=== PATIENT | female | born 2000 | race American Indian/Alaskan Native ===

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

== ENCOUNTER 2021-07-18 18:45 | Emergency (ER) | payer BC ==
[2021-07-18 20:35] VITALS: BP 111/72
== END 2021-07-19 02:50 | disposition left against medical advice (07) ==
LOC: ED 18:45
DX: N73.9 Female pelvic inflammatory disease, unspecified (principal); Z53.21 Procedure and treatment not carried out due to patient leaving prior to being seen by health care provider

== ENCOUNTER 2021-07-19 10:02 | Emergency (ER) | payer BC ==
[2021-07-19] MEDS ORDERED: SODIUM CHLORIDE 0.9% 1000 ML 1,000 ML IV ONE (15:45)
[2021-07-19] MEDS ORDERED: ONDANSETRON 4 MG/2 ML INJ IV ONE (15:45)
[2021-07-19] MEDS ORDERED: KETOROLAC 30 MG/1 ML INJ IV ONE (15:45)
--- NOTE | 2021-07-19 15:51 | Emergency Department Report ---
ED Abdominal Pain HPI - General Chief Complaint: Abdominal Pain Stated Complaint: PID Time Seen by Provider: 07/19/21 15:26 Source: patient Mode of arrival: Ambulatory Limitations: No Limitations - History of Present Illness Initial Comments: 21 yo F who present with abdominal pain that started on Friday 4 days ago and progressively getting worse. Pt was seen at the Urgent Care yesterday and diagnosed with UTI and PID who started her on Flagyl and Doxycyclin and acyclovir and was given Rocephin 1g x 1. Pt also reports fever of 103 degrees. She also noted soreness and blister surrounding her vaginal vault. Pt denies any nausea or vomiting. She says she has been able to tolerate all her medications. Pt reports starting the menstrual period today. No other modifying or associated factors reported. - Related Data Previous Rx's Medication Instructions Recorded Last Taken Type Naproxen 500 mg PO BID PRN #20 tablet 12/04/20 Unknown Rx methocarbamoL [Methocarbamol] 750 - 1,500 mg PO TID PRN #20 12/04/20 Unknown Rx tablet Ketorolac [Toradol] 10 mg PO Q6H PRN 5 Days #20 tab NS 07/19/21 Unknown Rx Allergies Allergy/AdvReac Type Severity Reaction Status Date / Time No Known Allergies Allergy Verified 07/18/21 20:36 ED Review of Systems ROS: Stated complaint: PID Other details as noted in HPI Comment: All other systems reviewed and negative Gastrointestinal: abdominal pain. denies: nausea, vomiting Genitourinary: other (blister per vaginal ) ED Past Medical Hx - Social History Smoking Status: Never Smoker Substance Use Type: None - Medications Home Medications: Home Medications Medication Instructions Recorded Confirmed Last Taken Type Naproxen 500 mg PO BID PRN #20 tablet 12/04/20 Unknown Rx methocarbamoL [Methocarbamol] 750 - 1,500 mg PO TID PRN #20 12/04/20 Unknown Rx tablet Ketorolac [Toradol] 10 mg PO Q6H PRN 5 Days #20 tab NS 07/19/21 Unknown Rx ED Physical Exam - General Limitations: No Limitations General appearance: alert, in distress (due to pain ) - Eye Eye exam: Present: normal appearance. Absent: conjunctival injection - ENT ENT exam: Present: normal exam, normal orophraynx, mucous membranes moist - Neck Neck exam: Present: normal inspection, full ROM. Absent: tenderness - Respiratory Respiratory exam: Present: normal lung sounds bilaterally. Absent: respiratory distress, accessory muscle use - Cardiovascular Cardiovascular Exam: Present: regular rate, normal rhythm, normal heart sounds - GI/Abdominal GI/Abdominal exam: Present: soft, tenderness (suprapubic tenderness to palpation ) - External exam: Present: erythema, swelling, lesions (blister in different stages ). Absent: lacerations Bi-manual exam: Present: normal bi-manual exam. Absent: cervical motion tendernes, adnexal tenderness - Extremities Exam Extremities exam: Present: normal inspection, full ROM - Back Exam Back exam: Absent: tenderness - Neurological Exam Neurological exam: Present: alert, oriented X3 - Psychiatric Psychiatric exam: Present: normal affect, normal mood - Skin Skin exam: Present: warm, normal color ED Course Vital Signs 07/19/21 07/19/21 07/19/21 10:29 16:03 16:05 Temperature 102.7 F H Pulse Rate 123 H Respiratory 18 Rate Blood Pressure 115/72 Blood Pressure 116/74 [Right] O2 Sat by Pulse 99 96 100 Oximetry 07/19/21 07/19/21 07/19/21 16:11 16:15 16:20 Temperature Pulse Rate Respiratory Rate Blood Pressure 115/72 115/72 94/72 Blood Pressure [Right] O2 Sat by Pulse 100 100 98 Oximetry 07/19/21 07/19/21 07/19/21 16:25 16:31 16:35 Temperature Pulse Rate Respiratory Rate Blood Pressure 94/72 94/72 94/72 Blood Pressure [Right] O2 Sat by Pulse 100 100 100 Oximetry 07/19/21 07/19/21 07/19/21 16:41 16:45 16:50 Temperature Pulse Rate Respiratory Rate Blood Pressure 94/72 94/72 94/72 Blood Pressure [Right] O2 Sat by Pulse 98 98 96 Oximetry 07/19/21 07/19/21 07/19/21 16:55 17:01 17:05 Temperature Pulse Rate Respiratory Rate Blood Pressure 94/72 94/72 94/72 Blood Pressure [Right] O2 Sat by Pulse 98 99 98 Oximetry 07/19/21 07/19/21 07/19/21 17:11 17:15 17:21 Temperature Pulse Rate Respiratory Rate Blood Pressure 94/72 94/72 94/72 Blood Pressure [Right] O2 Sat by Pulse 97 99 98 Oximetry 07/19/21 07/19/21 07/19/21 17:25 17:31 17:35 Temperature Pulse Rate Respiratory Rate Blood Pressure 94/72 94/72 94/72 Blood Pressure [Right] O2 Sat by Pulse 99 99 100 Oximetry 07/19/21 07/19/21 07/19/21 17:41 17:45 17:51 Temperature Pulse Rate Respiratory Rate Blood Pressure 94/72 94/72 94/72 Blood Pressure [Right] O2 Sat by Pulse 99 98 99 Oximetry 07/19/21 07/19/21 07/19/21 17:55 18:01 18:05 Temperature Pulse Rate Respiratory Rate Blood Pressure 94/72 94/72 94/72 Blood Pressure [Right] O2 Sat by Pulse 97 99 99 Oximetry 07/19/21 07/19/21 07/19/21 18:11 18:15 18:21 Temperature Pulse Rate Respiratory Rate Blood Pressure 94/72 94/72 94/72 Blood Pressure [Right] O2 Sat by Pulse 99 99 98 Oximetry 07/19/21 07/19/21 07/19/21 18:25 18:31 18:35 Temperature Pulse Rate Respiratory Rate Blood Pressure 94/72 94/72 94/72 Blood Pressure [Right] O2 Sat by Pulse 98 98 97 Oximetry 07/19/21 07/19/21 07/19/21 18:41 18:45 18:51 Temperature Pulse Rate Respiratory Rate Blood Pressure 94/72 94/72 94/72 Blood Pressure [Right] O2 Sat by Pulse 97 97 97 Oximetry 07/19/21 07/19/21 18:55 19:02 Temperature 98.9 F Pulse Rate 102 H Respiratory Rate Blood Pressure 94/72 Blood Pressure [Right] O2 Sat by Pulse 100 Oximetry - Reevaluation(s) Reevaluation #1: 07/19/21 15:52 here with abdominal pain and blister per vagina--differential diagnosis includes but not limited to UTI, dysmenorrhea, PID, herpes genitalia, pyelonephritis, appendicitis, colitis and or constipation. So we will go ahead and start the patient on IV fluid, given pain medication, and antinausea and order routine CBC, CMP, UA, or electrolyte abnormality. We will also consider CT scan of the abdomen to rule out any inflammatory changes. Pelvic exam will be considered during this evaluation. Reevaluation #2: 07/19/21 19:01 Pelvic exam noted with external genitalia with different stages of blisters/vesicles consistent with genital herpes-- no cervical motion or adneza tenderness noted-- will encourage patient to continue and complete her current acyclovir and the other antibiotics since this patient started on it already. 07/19/21 19:14 Also UA noted with large urine leukocytes but with negative nitrites-- ED Medical Decision Making - Lab Data Result diagrams: 07/19/21 16:40 07/19/21 16:40 Critical care attestation.: If time is entered above; I have spent that time in minutes in the direct care of this critically ill patient, excluding procedure time. ED Disposition Clinical Impression: Blister (nonthermal) of vagina and vulva, initial encounter, Exposure to STD, STD (sexually transmitted disease) Abdominal pain Qualifiers: Abdominal location: unspecified location Qualified Code(s): R10.9 - Unspecified abdominal pain Herpes genitalia Qualifiers: Herpes simplex infection site: unspecified site of urogenital system Qualified Code(s): A60.00 - Herpesviral infection of urogenital system, unspecified Disposition: 01 HOME / SELF CARE / HOMELESS Is pt being admited?: No Does the pt Need Aspirin: No Condition: Stable Instructions: Genital Herpes, Blisters, Adult, Safe Sex, Abdominal Pain (ED) Additional Instructions: Please take and complete your Acyclovir your antiviral and also the other antibiotics since your have started taken them and that you might have a touch of urinary tract infection Take your pain medication as prescribed Call and follow up with your doctor in the next 3-5 days for progress Please call or return to ED if your symptoms worsen Prescriptions: Ketorolac [Toradol] 10 mg PO Q6H PRN 5 Days #20 tab NS PRN Reason: Pain Referrals: PRIMARY CARE,MD [Primary Care Provider] - 3-5 Days Time of Disposition: 19:15
[2021-07-19 16:50] LABS: HCG Qualitative,Urine Negative (Negative)
[2021-07-19 16:52] LABS: Bilirubin,Urine NEG (Negative); Blood,Urine SM (Negative); Color,Urine Yellow (Yellow); Mucus,Urine FEW /HPF; Urobilinogen,Urine < 2.0 mg/dL (<2.0)
[2021-07-19 16:57] LABS: Hematocrit 33.7 % (30.3-42.9); Hemoglobin 11.7 gm/dl (10.1-14.3); Mean Corpuscular HGB Conc 35 % (30-34); Mean Corpuscular Volume 90 fl (79-97); Platelet Count 175 K/mm3 (140-440); Red Blood Count 3.75 M/mm3 (3.65-5.03)
[2021-07-19 17:24] LABS: INR 1.02 (0.87-1.13)
[2021-07-19 17:25] LABS: Partial Thromboplastin Time 29.1 Sec. (24.2-36.6)
[2021-07-19 17:30] LABS: Alanine Aminotransferase 17 units/L (7-56); Albumin 3.6 g/dL (3.9-5); BUN/Creatinine Ratio 14; Blood Urea Nitrogen 11 mg/dL (7-17); Calcium 8.2 mg/dL (8.4-10.2); Hemolysis Index 5
[2021-07-19 19:08] LABS: Basophils % (Manual) 0 % (0.0-1.8); Eosinophils % (Manual) 0 % (0.0-4.3); Total Cells Counted 100
[2021-07-19 19:09] LABS: Anisocytosis 1+; Burr Cells 1+; Platelet Estimate Consistent w Auto; Poikilocytosis 1+
[2021-07-19 19:40] VITALS: BP 131/88
== END 2021-07-19 19:40 | disposition home or self-care (01) ==
LOC: ED 10:02
DX: S30.824A Blister (nonthermal) of vagina and vulva, initial encounter (principal); A60.04 Herpesviral vulvovaginitis; R10.9 Unspecified abdominal pain; X58.XXXA Exposure to other specified factors, initial encounter; Y93.89 Activity, other specified; Y92.89 Other specified places as the place of occurrence of the external cause; Y99.8 Other external cause status
CPT/HCPCS: 36415; 80053; 81001; 81025; 82140; 83690; 85007; 85025; 85610; 85730; 87086; 96361; 96374; 99284; J1885; J2405; J7030